=== PATIENT | female | born 1975 | race Caucasian/White ===

== ENCOUNTER 2019-03-03 17:01 | Inpatient (IN) ==
--- NOTE | 2019-03-03 17:59 | Emergency Department Note ---
ED Disposition Clinical Impression: Incarcerated ventral hernia, Small bowel obstruction Disposition: Still a Patient Condition on Discharge: Fair Instructions: DI for Acute Abdomen Referrals: Kylah Baldwin APRN [Primary Care Provider] - Time of Disposition: 19:44 - Critical Care Critical Care Time: No Attestation: On 03/03/19, the high probability of a clinically significant, sudden or life threatening deterioration of the following system(s) required my full and direct attention, intervention and personal management. The time I documented below is in addition to time spent performing reported procedures but includes the following listed in this critical care notation. Medical Decision Making - Medical Records Medical records reviewed: Yes: I reviewed the patient's medical records. - Eben Inquiry Pt receiving controlled substance: No Eben was queried for this patient: No Vital Signs: 03/03/19 17:12 03/03/19 18:32 03/03/19 19:39 Temperature 98.0 F 98.3 F Temperature Source Oral Oral Pulse Rate [Right Radial] 87 79 85 Respiratory Rate 18 18 16 Blood Pressure [Right Arm] 183/127 H 181/112 H 151/110 H Blood Pressure Mean [Right Arm] 145 135 123 Blood Pressure Source [Right Arm] Automatic Cuff Automatic Cuff Automatic Cuff Blood Pressure Position [Right Arm] Sitting Sitting Standing 02 Sat by Pulse Oximetry 99 95 97 Oxygen Delivery Method Room Air Room Air Room Air - Lab Data Lab results reviewed: Yes: I reviewed the patient's lab results. Lab Results 03/03/19 17:50: WBC 13.6 H, RBC 4.85, Hgb 14.9, Hct 44.3, MCV 91.2, MCH 30.7, MCHC 33.7, RDW 13.0, Plt Count 292, MPV 9.0, Neut % (Auto) 87.1 H, Lymph % (Auto) 7.8 L, [place] % (Auto) 3.6, Eos % (Auto) 1.1, Baso % (Auto) 0.5, Neut # (Auto) 11.9 H, Lymph # (Auto) 1.1, [place] # (Auto) 0.5, Eos # (Auto) 0.2, Baso # (Auto) 0.1, Total Counted 100, Neutrophils % (Manual) 75, Lymphocytes % (Manual) 16, Atypical Lymphs % 2.0, Monocytes % (Manual) 7, Platelet Estimate Normal, RBC Morphology Normal 03/03/19 17:50: Sodium 140, Potassium 3.9, Chloride 104, Carbon Dioxide 22, Anion Gap 17.9 H, BUN 18, Creatinine 0.72, Estimated Creat Clear 90, Estimated GFR 88, Est GFR ( Amer) 106, Glucose 141 H, Calcium 9.6, Total Bilirubin 0.6, AST 15, ALT 21, Alkaline Phosphatase 128 H, Total Protein 8.0, Albumin 4.0, Globulin 4.0 H, Albumin/Globulin Ratio 1.0 L Result diagrams: 03/03/19 17:50 03/03/19 17:50 Orders (Tests/Meds): ED MEDICATIONS Generic Name Dose Route Start Last Admin Trade Name Freq PRN Reason Stop Dose Admin Sodium Chloride 1,000 mls @ 999 mls/hr 03/03/19 18:00 03/03/19 17:53 Sod Chlor 0.9% 1000ml Bag IV 03/03/19 19:00 999 mls/hr .Q1H1M ROHINI Administration Discontinued Medications Generic Name Dose Route Start Last Admin Trade Name Freq PRN Reason Stop Dose Admin Hydromorphone HCl 2 mg 03/03/19 19:09 03/03/19 19:12 Dilaudid 2mg/Ml Syringe IV 03/03/19 19:10 Not Given ONCE ONE Hydromorphone HCl 2 mg 03/03/19 19:09 03/03/19 19:19 Dilaudid 2mg/Ml Syringe IV 03/03/19 19:10 2 mg ONCE ONE Administration Lorazepam 1 mg 03/03/19 19:09 03/03/19 19:20 Ativan 2mg/Ml Vial IV 03/03/19 19:10 1 mg ONCE ONE Administration Ondansetron HCl 4 mg 03/03/19 17:52 03/03/19 17:53 Zofran 4mg/2ml Vial IV 03/03/19 17:53 4 mg ONCE ONE Administration ORDERS Category Date Time Status CT abdomen pelvis wo con Stat Cat Scan 03/03/19 17:19 Taken - Physician Consults Physician Consulted: allran Time: 19:43 Reason -: Pt condition Comment/Response: will see in ED Abdominal Pain HPI - General Chief Complaint: Abdominal Pain Stated Complaint: Pt has hernia, having pain and vomiting Time Seen by Provider: 03/03/19 17:56 Mode of Arrival: Ambulatory Limitations: No Limitations Description of Symptoms (Recalled from ER Triage Doc. by RN): Pt c/o abd pain and vomitting. Pt reports has known umbilical hernia since 2006. Pt reports in previous episodes of pain pt states she "lays down flat and reduces" hernia. Pt reports unable to do that today, reports pain has made her vomit, reports emesis is green in color - History of Present Illness HPI narrative: long standing umbilical hernia. Today pain and bilious vomiting - Related Data Allergies Allergy/AdvReac Type Severity Reaction Status Date / Time PCN (penicillin) Allergy Unknown Uncoded 09/27/17 14:26 Penicillin Allergy Unknown Uncoded 09/27/17 14:26 Penicillin G Allergy Unknown Uncoded 09/27/17 14:26 [facility] History - Hepatitis A Screen Drug use history?: No High risk sexual behaviors?: No History of sexually transmitted infection?: No Currently employed?: No Childcare worker?: No Do you have indoor plumbing?: Yes Do you have electricity?: Yes Attestation statement:: This patient has been screened for Hepatitis A risk factors. I have reviewed the patient's past medical history: Yes Medical History: Denies:: Diabetes Mellitus Type 1, Diabetes Mellitus Type 2 - Social History Alcohol Intake: never Occupational Status: employed - Psychiatric History Expresses thoughts of harming self/others: None Suicide Plan Description: No Plan ROS Obtained: Yes All systems reviewed & no additional complaints - Constitutional Constitutional: Denies fever(s) - ENT Ears, Nose, Mouth, and Throat: Denies sinus pain, Denies sinus pressure, Denies sore throat - Cardiovascular Cardiovascular: Denies chest pain, Denies dyspnea - Respiratory Respiratory: No chest congestion, No cough, No dyspnea - Gastrointestinal Gastrointestingal: Reports: abdominal pain, cramping. Denies: vomiting - Musculoskeletal Musculoskeletal: Denies joint stiffness, Denies joint swelling, Denies muscle weakness - Integumentary/Breasts Skin/Breast: Denies rash, Denies skin pain - Neurologic Neurologic: Denies numbness, Denies tingling/numbness/burning sensations - Hematologic/Lymphatic Henatologic/Lymphatic: Denies easy bleeding Physical Exam - General General appearance: alert - Head Head exam: atraumatic, normocephalic, normal inspection - Eye Eye exam: Present: normal appearance, PERRL, EOMI - ENT ENT exam: Present: normal exam, normal oropharynx, mucous membranes moist, TM's normal bilaterally, normal external ear exam - Neck Neck exam: Present: normal inspection - Chest Chest inspection: Present: normal inspection, symmetric chest wall rise. Absent: tenderness - Respiratory Respiratory exam: Present: normal lung sounds bilaterally - Cardiovascular Cardiovascular exam: Present: regular rate, normal rhythm. Absent: JVD - Abdominal Exam Abdominal exam: Present: soft, distention, tenderness, hernia, other (irreducible) - Extremities Exam Extremities exam: Present: normal inspection, full ROM, normal capillary refill. Absent: calf tenderness - Back Exam Back exam: Present: normal inspection. Absent: tenderness - Neurological Exam Neurological exam: Present: alert, oriented X3 - Psychiatric Psychiatric exam: Present: normal affect, normal mood - Skin Skin exam: Present: warm, dry, intact, normal color
[2019-03-03 18:07] LABS: Basophils # 0.1 K/mm3 (0-0.2); Basophils % 0.5 % (0.1-2.0); Eosinophils # 0.2 K/mm3 (0.0-0.4); Eosinophils % 1.1 % (0.1-12.0); Hematocrit 44.3 % (37.0-47.0); Hemoglobin 14.9 g/dL (12.2-16.2); Lymphocytes # 1.1 K/mm3 (0.7-4.5); Lymphocytes % 7.8 % (10-50); Mean Corpuscular HGB Conc 33.7 g/dL (31.8-35.4); Mean Corpuscular Hemoglobin 30.7 pg (27.0-31.2); Mean Corpuscular Volume 91.2 fl (81-99); Monocytes # 0.5 K/mm3 (0.1-1.0); Monocytes % 3.6 % (1.7-9.3); Neutrophils # 11.9 K/mm3 (1.8-7.8); Neutrophils % 87.1 % (37.0-80.0); Platelet Count 292 K/mm3 (142-424); Red Blood Count 4.85 M/mm3 (4.20-5.40); White Blood Count 13.6 K/mm3 (4.8-10.8)
[2019-03-03 18:15] LABS: Anion Gap 17.9 mEq/L (5-15); Bilirubin,Total 0.6 mg/dL (0.2-1.0); Calcium 9.6 mg/dL (8.5-10.1)
[2019-03-03 18:16] LABS: Potassium 3.9 mmoL/L (3.5-5.1)
[2019-03-03 18:28] LABS: Lymphocytes % 16 % (10-50); Monocytes % 7 % (2-9); Neutrophils % 75 % (42-76); RBC Morphology Normal; Total Cells Counted 100
--- NOTE | 2019-03-03 20:36 | History & Physical Report ---
HPI HPI: Abdominal pain and vomiting Patient is a 43-year-old white female who lives in [facility]. She has a known history of a umbilical hernia noted in 2006 during . She states that occasionally it will protrude and she is able to perform some maneuvers, particularly lying flat, and reduce it. However, this morning she states that it protruded and she was unable to reduce it. She reportedly did work today. She had persistent abdominal pain at the location and tried to eat but developed some vomiting. She has had persistent pain, discomfort, and vomiting and therefore presented to the emergency department at [facility]. She was seen and evaluated and underwent CT scan which revealed a ventral hernia containing a loop of bowel with resultant bowel obstruction. Surgical consultation was obtained. [facility] History Medical History: Reports:: Hypertension Denies:: Diabetes Mellitus Type 1, Diabetes Mellitus Type 2 *Have you ever received a pneumonia vaccine?: No *Have you received a flu vaccine this season?: Yes - *Social History Smoking Status: Current every day smoker Tobacco Type: cigarettes # Packs/Day (cigarettes): 1 Alcohol Intake: current Alcohol Intake Frequency:: holidays/special occasions only Substance Use Type: denies use *Occupational Status:: employed *Travel in the last 8 weeks: None - Psychiatric History Expresses thoughts of harming self/others: None Suicide Plan Description: No Plan Family Hx:: No significant family history Review of Systems - Review of Systems Review of systems:: pertinent systems reviewed and negative unless documented below - Constitutional Denies chills - Eyes Denies change in vision - ENT Denies abnormal hearing - *Cardiovascular Denies chest pain - *Respiratory Denies cough - *Gastrointestinal Reports abdominal pain, Reports vomiting - *Musculoskeletal Reports joint pain - Integumentary/Breasts Denies change in skin color - *Neurologic Denies dizziness, Denies numbness, Denies tingling/numbness/burning sensations Meds Allergies Allergy/AdvReac Type Severity Reaction Status Date / Time PCN (penicillin) Allergy Unknown Uncoded 09/27/17 14:26 Penicillin Allergy Unknown Uncoded 09/27/17 14:26 Penicillin G Allergy Unknown Uncoded 09/27/17 14:26 Exam Vital signs and Labs for Last 24 Hours: Temp Pulse Resp BP Pulse Ox 98.3 F 85 16 151/110 H 97 03/03/19 19:39 03/03/19 19:39 03/03/19 19:39 03/03/19 19:39 03/03/19 19:39 Laboratory Results - last 24 hr 03/03/19 17:50: WBC 13.6 H, RBC 4.85, Hgb 14.9, Hct 44.3, MCV 91.2, MCH 30.7, MCHC 33.7, RDW 13.0, Plt Count 292, MPV 9.0, Neut % (Auto) 87.1 H, Lymph % (Auto) 7.8 L, [place] % (Auto) 3.6, Eos % (Auto) 1.1, Baso % (Auto) 0.5, Neut # (Auto) 11.9 H, Lymph # (Auto) 1.1, [place] # (Auto) 0.5, Eos # (Auto) 0.2, Baso # (Auto) 0.1, Total Counted 100, Neutrophils % (Manual) 75, Lymphocytes % (Manual) 16, Atypical Lymphs % 2.0, Monocytes % (Manual) 7, Platelet Estimate Normal, RBC Morphology Normal 03/03/19 17:50: Sodium 140, Potassium 3.9, Chloride 104, Carbon Dioxide 22, Anion Gap 17.9 H, BUN 18, Creatinine 0.72, Estimated Creat Clear 90, Estimated GFR 88, Est GFR ( Amer) 106, Glucose 141 H, Calcium 9.6, Total Bilirubin 0.6, AST 15, ALT 21, Alkaline Phosphatase 128 H, Total Protein 8.0, Albumin 4.0, Globulin 4.0 H, Albumin/Globulin Ratio 1.0 L I & O for Last 24 hours: Intake & Output 03/01/19 03/02/19 03/03/19 03/04/19 11:59 11:59 11:59 11:59 Weight 250 lb - *Routine HEENT Exam Head: Present: normocephalic Eye: Present: EOMI, PERRL ENT: Present: mucous membranes moist - *Routine Neck Exam Present: supple. Absent: lymphadenopathy - *Routine Respiratory Exam Present: CTA bilaterally - *Routine Cardiovascular Exam Present: RRR - *Routine Abdominal Exam Present: soft, normoactive bowel sounds, tenderness Comments: She has palpable subcutaneous mass consistent with incarcerated hernia immediately above her umbilicus. I am unable to reduce this. - *Routine Extremities Exam Absent: cyanosis, clubbing, edema - *Routine Skin Exam Present: warm. Absent: rash - *Routine Neurological Exam Present: alert, oriented X3 - Detailed Eye Exam Eyelids: Left normal inspection Results - Results Lab Results Last 24 Hours:: Laboratory Results - last 24 hr 03/03/19 17:50: WBC 13.6 H, RBC 4.85, Hgb 14.9, Hct 44.3, MCV 91.2, MCH 30.7, MCHC 33.7, RDW 13.0, Plt Count 292, MPV 9.0, Neut % (Auto) 87.1 H, Lymph % (Auto) 7.8 L, [place] % (Auto) 3.6, Eos % (Auto) 1.1, Baso % (Auto) 0.5, Neut # (Auto) 11.9 H, Lymph # (Auto) 1.1, [place] # (Auto) 0.5, Eos # (Auto) 0.2, Baso # (Auto) 0.1, Total Counted 100, Neutrophils % (Manual) 75, Lymphocytes % (Manual) 16, Atypical Lymphs % 2.0, Monocytes % (Manual) 7, Platelet Estimate Normal, RBC Morphology Normal 03/03/19 17:50: Sodium 140, Potassium 3.9, Chloride 104, Carbon Dioxide 22, Anion Gap 17.9 H, BUN 18, Creatinine 0.72, Estimated Creat Clear 90, Estimated GFR 88, Est GFR ( Amer) 106, Glucose 141 H, Calcium 9.6, Total Bilirubin 0.6, AST 15, ALT 21, Alkaline Phosphatase 128 H, Total Protein 8.0, Albumin 4.0, Globulin 4.0 H, Albumin/Globulin Ratio 1.0 L Assessment and Plan - Assessment and plan all Dx Assessment and Plan for all problems:: I was unable to reduce the hernia in the emergency department. Patient has evidence of incarcerated supraumbilical hernia containing loop of bowel with resultant small bowel obstruction. Plan will be for emergent release of hernia and bowel obstruction with repair. She may have a strangulated hernia and require bowel resection. I explained all of this to the patient. She un derstands and agrees to proceed.
--- NOTE | 2019-03-03 22:44 | Operative Note ---
Date of procedure: 03/03/19 Pre-op Diagnosis:: Incarcerated ventral/umbilical hernia Post-op Diagnosis:: Same Procedure performed:: Open repair of incarcerated ventral hernia (primary repair) with release of bowel obstruction Surgeon:: Yuniel Del Real MD DIRECTOR OF TRAUMA:: Brian Paz Anesthesia: GETA Estimated blood loss (mL): 25 Clinical Note:: Patient is a 43-year-old white female who lives in [facility]. She has a known history of a umbilical hernia noted in 2006 during . She states that occasionally it will protrude and she is able to perform some maneuvers, particularly lying flat, and reduce it. However, this morning she states that it protruded and she was unable to reduce it. She reportedly did work today. She had persistent abdominal pain at the location and tried to eat but developed some vomiting. She has had persistent pain, discomfort, and vomiting and therefore presented to the emergency department at [facility]. She was seen and evaluated and underwent CT scan which revealed a ventral hernia containing a loop of bowel with resultant bowel obstruction. Surgical consultation was obtained. Patient was seen and examined. The hernia was unable to be reduced. She had evidence of bowel obstruction secondary to incarcerated hernia. Plan was made for emergent surgical intervention. Operative findings:: She had a rather small hernia defect with a significant amount of herniated omentum a small pedicle of which was strangulated. The loop of small bowel was ultimately identified and found to be somewhat inflamed but viable with no evidence of any necrosis. The umbilical sub-dermis was densely adherent to the chronically incarcerated hernia sac which ultimately required excision of the skin of the umbilicus for repair. Operative note:: Consent was obtained patient was taken emergently to the operating room. She was positioned in a supine position. General anesthesia was induced via endotracheal tube. Pardo catheter was placed. Her abdomen was prepped and draped in the standard surgical fashion. Limited midline incision was made in the periumbilical location. Dissection was carried down through subcutaneous tissues. Firm hernia contents were identified and dissection was carried out dissecting the hernia sac free from the surrounding subcutaneous tissues. Hernia sac with contained contents was rather large. The umbilical skin and subdermis was densely adherent to the hernia sac. This was unable to be dissected free from the hernia sac and therefore decision was made to excise the involved skin. Involved skin was excised. Ultimately the hernia sac was opened. There was contained omentum incarcerated in a small pedicle of omentum was strangulated. The pedicle of omentum was sequentially clamped divided and ligated with Vicryl ties. This was ultimately sent as the specimen labeled hernia sac and contents. The peritoneum of the hernia sac was dissected down to the fascia and the extraneous peritoneum of the hernia sac was excised using electrocautery. This was included in the specimen. The defect was relatively small measuring about 2-1/2 to 3 cm. The involved loop of small bowel was then able to be identified which was initially not noted in the hernia sac. The loop of small bowel was somewhat inflamed but viable and nonnecrotic. It was returned to the peritoneal cavity. The fascial defect of the hernia was closed with interrupted #1 Prolene sutures in a "farnearnearfar" fashion. This resulted in good primary closure of the hernia defect. The subcutaneous tissues were irrigated. There was good hemostasis. The skin was closed with a combination of skin dick and interrupted 2-0 nylon vertical mattress sutures. Clean dry sterile absorbent dressing was applied. Condition: stable Disposition: PACU Specimens:: Hernia sac and contents Complications:: None immediately apparent
--- NOTE | 2019-03-03 22:53 | Progress Note ---
[facility] Anesthesia Checklist - Patient Identification Patient Identification: Arm Band, Verbal (Name & ) - Structural Data Admitted From: Emergency Dept Planned Operative Procedure/s: Open ventral hernia repair Consent for Planned Operative Procedure(s) Verified: Yes Verified Documents: Surgical Consent, History and Physical - NPO Status Verified Time NPO: 06:00 - Chart Verification Results Verified: CBC, BMP - Additional verifications Patient : No Anesthesia Reactions: No - Airway Assessment C-Spine Mobility Assessed: Yes TMJ Mobility Assessed: Yes Dentition: Poor Dentition (broken, chipped) - Neurological Assessment Level of Consciousness: Awake, Alert, Appropriate, Follows Commands Hx Seizures: No Numbness or tingling in extremities: No - Anesthesia Plan Anesthesia Risk discussed: Yes Anesthesia Plan: Verified ASA Class: III (E) Anesthesia Type: General [facility] History I have reviewed the patient's past medical history: Yes Medical History: Reports:: Hypertension (noncomplaint) Denies:: Diabetes Mellitus Type 1, Diabetes Mellitus Type 2 *Have you ever received a pneumonia vaccine?: No *Have you received a flu vaccine this season?: Yes Comment:: Morbid obesity Other Surgeries: Yes: (x2) - *Social History Smoking Status: Current every day smoker Tobacco Type: cigarettes # Packs/Day (cigarettes): 2 Alcohol Intake: current Alcohol Intake Frequency:: holidays/special occasions only Substance Use Type: denies use *Occupational Status:: employed *Travel in the last 8 weeks: None - Psychiatric History Expresses thoughts of harming self/others: None Suicide Plan Description: No Plan Family Hx:: No significant family history
--- NOTE | 2019-03-03 22:53 | Progress Note ---
[facility] Anesthesia Record Part I Intake, IV Amount: 900 Estimated blood loss (mL): 20 Urine output (mL): 150 Blood Products used (#): none Blood Pressure: 108/32 SaO2: 95 Pulse Rate: 100 Respiratory Rate: 10 Temperature: 98.4 F Patient is:: Awake, Nasal O2, Stable Stable to PACU at:: 22:45
--- NOTE | 2019-03-03 22:54 | Progress Note ---
[facility] Anesthesia Record Part II Discharge Time: 23:15 Destination: Medical Surgical Department PACU nurse assessment reviewed?: Yes Patient Condition:: Good Anesthesia Complications:: None Swallowing reflex intact?: Yes Cyanosis?: No
[2019-03-04 05:19] LABS: Basophils % 0.1 % (0.1-2.0); Eosinophils # 0.1 K/mm3 (0.0-0.4); Eosinophils % 0.8 % (0.1-12.0); Hematocrit 40.6 % (37.0-47.0); Lymphocytes # 0.8 K/mm3 (0.7-4.5); Lymphocytes % 6.2 % (10-50); Mean Corpuscular HGB Conc 32.6 g/dL (31.8-35.4); Mean Corpuscular Hemoglobin 31.3 pg (27.0-31.2); Mean Corpuscular Volume 96.2 fl (81-99); Mean Platelet Volume 9.3 fl (7.4-10.4); Monocytes # 0.4 K/mm3 (0.1-1.0); Monocytes % 3.3 % (1.7-9.3); Neutrophils # 11.3 K/mm3 (1.8-7.8); Neutrophils % 89.5 % (37.0-80.0); Platelet Count 226 K/mm3 (142-424); Red Blood Count 4.22 M/mm3 (4.20-5.40); Red Cell Distribution Width 12.8 % (11.5-17.5); White Blood Count 12.6 K/mm3 (4.8-10.8)
[2019-03-04 05:24] LABS: Hemoglobin 13.2 g/dL (12.2-16.2)
[2019-03-04 05:26] LABS: Calcium 8.6 mg/dL (8.5-10.1)
[2019-03-04 05:52] LABS: Lymphocytes % 5 % (10-50); Monocytes % 1 % (2-9); Neutrophils % 91 % (42-76); RBC Morphology Normal; Total Cells Counted 100
--- NOTE | 2019-03-04 08:56 | Progress Note ---
Subjective Patient reports: feels better Narrative: No complaints of nausea. Thirsty. Pain actually improved. Exam Vital signs and Labs for Last 24 Hours: Temp Pulse Resp BP Pulse Ox 98.2 F 81 18 143/87 H 98 03/04/19 08:00 03/04/19 08:00 03/04/19 08:00 03/04/19 08:00 03/04/19 08:00 Laboratory Results - last 24 hr 03/03/19 17:50: WBC 13.6 H, RBC 4.85, Hgb 14.9, Hct 44.3, MCV 91.2, MCH 30.7, MCHC 33.7, RDW 13.0, Plt Count 292, MPV 9.0, Neut % (Auto) 87.1 H, Lymph % (Auto) 7.8 L, [place] % (Auto) 3.6, Eos % (Auto) 1.1, Baso % (Auto) 0.5, Neut # (Auto) 11.9 H, Lymph # (Auto) 1.1, [place] # (Auto) 0.5, Eos # (Auto) 0.2, Baso # (Auto) 0.1, Total Counted 100, Neutrophils % (Manual) 75, Lymphocytes % (Manual) 16, Atypical Lymphs % 2.0, Monocytes % (Manual) 7, Platelet Estimate Normal, RBC Morphology Normal 03/03/19 17:50: Sodium 140, Potassium 3.9, Chloride 104, Carbon Dioxide 22, Anion Gap 17.9 H, BUN 18, Creatinine 0.72, Estimated Creat Clear 90, Estimated GFR 88, Est GFR ( Amer) 106, Glucose 141 H, Calcium 9.6, Total Bilirubin 0.6, AST 15, ALT 21, Alkaline Phosphatase 128 H, Total Protein 8.0, Albumin 4.0, Globulin 4.0 H, Albumin/Globulin Ratio 1.0 L 03/03/19 21:20: Urine Color Yellow, Urine Appearance Cloudy, Urine pH 6.0, Ur Specific [place] >= 1.030, Urine Protein 1+, Urine Glucose (UA) Negative, Urine Ketones Negative, Urine Blood 3+, Urine Nitrate Negative, Urine Bilirubin Neg ative, Urine Urobilinogen 0.2, Ur Leukocyte Esterase Negative, Urine RBC 10-20 03/04/19 04:50: WBC 12.6 H, RBC 4.22, Hgb 13.2 D, Hct 40.6, MCV 96.2, MCH 31.3 H, MCHC 32.6, RDW 12.8, Plt Count 226, MPV 9.3, Neut % (Auto) 89.5 H, Lymph % (Auto) 6.2 L, [place] % (Auto) 3.3, Eos % (Auto) 0.8, Baso % (Auto) 0.1, Neut # (Auto) 11.3 H, Lymph # (Auto) 0.8, [place] # (Auto) 0.4, Eos # (Auto) 0.1, Baso # (Auto) 0.0, Total Counted 100, Neutrophils % (Manual) 91 H, Band Neutrophils % 3.0, Lymphocytes % (Manual) 5 L, Monocytes % (Manual) 1 L, Platelet Estimate Normal, RBC Morphology Normal 03/04/19 04:50: Sodium 140, Potassium 4.0, Chloride 107, Carbon Dioxide 23, Anion Gap 14.0, BUN 14, Creatinine 0.61, Estimated Creat Clear 106, Estimated GFR 107, Est GFR ( Amer) 129 D, Glucose 124 H, Calcium 8.6 D I & O for Last 24 hours: Intake & Output 03/01/19 03/02/19 03/03/19 03/04/19 11:59 11:59 11:59 11:59 Intake Total 1888 / 1888 Output Total 400 / 400 Balance 1488 / 1488 Weight 259 lb 4 oz - *Routine Abdominal Exam Present: soft Comments: Incision clean with some serous drainage. Progress Note: A&P Assessment and Plan for All Diagnoses:: LIANA Pardo Clear liquids Start Metoprolol
--- NOTE | 2019-03-04 10:56 | Pharmacy Consult Notes ---
[facility] Pharmacy VTE Monitoring - Patient Demographics Admission date: 03/04/19 Report Date: 03/04/19 Time: 10:55 Allergies/Adverse Reactions: Patient Allergies Penicillins Allergy (Unknown, Verified 03/04/19 08:09) Unknown allergy reaction Height: 1.65 m Weight: 117.594 kg Patient Problems: Current Active Problems (Updated 03/03/19 @ 19:44 by Lance Carias MD) Incarcerated ventral hernia (Acute) Small bowel obstruction (Acute) - VTE Risk Labs: VTE Related Lab Results Hgb 13.2 g/dL (12.2-16.2) D 03/04/19 04:50 Hct 40.6 % (37.0-47.0) 03/04/19 04:50 Plt Count 226 K/mm3 (142-424) 03/04/19 04:50 BUN 14 mg/dL (7-18) 03/04/19 04:50 Creatinine 0.61 mg/dL (0.55-1.02) 03/04/19 04:50 Estimated Creat Clear 106 mL/min (50-200) 03/04/19 04:50 VTE Score: 4 VTE Risk Level: Low Risk - Prophylaxis Types of VTE Prophylaxis: IPCS Knee High (SCUDS ORDERED) Location of Applied Device: Bilateral Lower Extremeties
[2019-03-05 06:59] LABS: Basophils % 0.5 % (0.1-2.0); Eosinophils # 0.2 K/mm3 (0.0-0.4); Eosinophils % 2.6 % (0.1-12.0); Hematocrit 34.5 % (37.0-47.0); Hemoglobin 11.5 g/dL (12.2-16.2); Lymphocytes # 2.1 K/mm3 (0.7-4.5); Lymphocytes % 32.3 % (10-50); Mean Corpuscular HGB Conc 33.4 g/dL (31.8-35.4); Mean Platelet Volume 8.8 fl (7.4-10.4); Monocytes # 0.4 K/mm3 (0.1-1.0); Monocytes % 6.2 % (1.7-9.3); Neutrophils # 3.7 K/mm3 (1.8-7.8); Neutrophils % 58.4 % (37.0-80.0); Platelet Count 192 K/mm3 (142-424); Red Blood Count 3.71 M/mm3 (4.20-5.40); Red Cell Distribution Width 13.1 % (11.5-17.5); White Blood Count 6.4 K/mm3 (4.8-10.8)
[2019-03-05 07:06] LABS: Anion Gap 10.5 mEq/L (5-15); Calcium 8.4 mg/dL (8.5-10.1); Potassium 3.5 mmoL/L (3.5-5.1)
--- NOTE | 2019-03-05 09:41 | Progress Note ---
Subjective Patient reports: feels better Narrative: Patient tolerated clear liquids without any difficulty whatsoever. She was requesting a [employer] chicken sandwich. She was advanced to full liquids. She has tolerated this well. Exam Vital signs and Labs for Last 24 Hours: Temp Pulse Resp BP Pulse Ox 98.1 F 70 18 151/81 H 97 03/05/19 07:58 03/05/19 07:58 03/05/19 07:58 03/05/19 07:58 03/05/19 07:58 Laboratory Results - last 24 hr 03/05/19 05:49: Sodium 142, Potassium 3.5, Chloride 108 H, Carbon Dioxide 27, Anion Gap 10.5, BUN 9 D, Creatinine 0.70, Estimated Creat Clear 92, Estimated GFR 91, Est GFR ( Amer) 110, Glucose 87, Calcium 8.4 L 03/05/19 05:49: Hemoglobin A1c 5.2 03/05/19 06:05: WBC 6.4 D, RBC 3.71 L, Hgb 11.5 L, Hct 34.5 L, MCV 93.0, MCH 31.0, MCHC 33.4, RDW 13.1, Plt Count 192, MPV 8.8, Neut % (Auto) 58.4, Lymph % ( Auto) 32.3, [place] % (Auto) 6.2, Eos % (Auto) 2.6, Baso % (Auto) 0.5, Neut # (Auto) 3.7, Lymph # (Auto) 2.1, [place] # (Auto) 0.4, Eos # (Auto) 0.2, Baso # (Auto) 0.0 I & O for Last 24 hours: Intake & Output 03/02/19 03/03/19 03/04/19 03/05/19 11:59 11:59 11:59 11:59 Intake Total 2600 / 2600 3175 / 3175 Output Total 1875 / 1875 Balance 725 / 725 3175 / 3175 Weight 259 lb 4 oz 271 lb 5 oz - *Routine HEENT Exam Head: Present: normocephalic Eye: Present: EOMI, PERRL ENT: Present: mucous membranes moist - *Routine Neck Exam Present: supple. Absent: lymphadenopathy - *Routine Respiratory Exam Present: CTA bilaterally - *Routine Cardiovascular Exam Present: RRR - *Routine Abdominal Exam Present: soft, normoactive bowel sounds. Absent: tenderness Comments: Incision is clean - *Routine Extremities Exam Absent: cyanosis, clubbing, edema - *Routine Skin Exam Present: warm. Absent: rash - *Routine Neurological Exam Present: alert, oriented X3 - Detailed Eye Exam Eyelids: Left normal inspection Progress Note: A&P Assessment and Plan for All Diagnoses:: Plan for discharge home.
--- NOTE | 2019-03-05 09:45 | Discharge Summary ---
General - General Admission date:: 03/03/19 Discharge date: 03/05/19 HPI HPI: Patient is a 43-year-old white female who lives in [facility]. She has a known history of a umbilical hernia noted in 2006 during . She states that occasionally it will protrude and she is able to perform some maneuvers, particularly lying flat, and reduce it. However, this morning she states that it protruded and she was unable to reduce it. She reportedly did work today. She had persistent abdominal pain at the location and tried to eat but developed some intractable vomiting. She has had persistent pain, discomfort, and vomiting and therefore presented to the emergency department at [facility]. She was seen and evaluated and underwent CT scan which revealed a ventral hernia containing a loop of bowel with resultant bowel obst ruction. Surgical consultation was obtained. Hospital Course Hospital Course: Patient was seen and examined as a consultation in the emergency department. T he hernia was unable to be reduced and was consistent with an incarcerated with possibly strangulated ventral hernia with resultant bowel obstruction. Patient was taken emergently to the operating room which time she underwent open repair. She had a significant amount of incarcerated omentum within the hernia sac and a small pedicle of incarcerated omentum. The loop of small bowel had spontaneo usly reduced during the dissection process. This was inspected and found to be somewhat irritated but non-necrotic and viable. She underwent primary repair. Please see operative dictation for complete details. She was admitted postoperatively for inpatient care and convalescence. She remained on n.p.o. status overnight. The following morning she felt much better. She was given a clear liquid diet. She tolerated this without difficulty and in the afternoon of postoperative day #1 was requesting a chicken sandwich. She was advised against this and given a full liquid diet. She tolerated full liquid diet without difficulty overnight and on postoperative day #2 arrangements were made for discharge home. Objective Vital signs: Temp Pulse Resp BP Pulse Ox 98.1 F 70 18 151/81 H 97 03/05/19 07:58 03/05/19 07:58 03/05/19 07:58 03/05/19 07:58 03/05/19 07:58 - Detailed Eye Exam Eyelids: Left normal inspection Results Labs on day of discharge: Labs from last 24 hours 03/05/19 03/05/19 03/05/19 06:05 05:49 05:49 WBC 6.4 D RBC 3.71 L Hgb 11.5 L Hct 34.5 L MCV 93.0 MCH 31.0 MCHC 33.4 RDW 13.1 Plt Count 192 MPV 8.8 Neut % (Auto) 58.4 Lymph % (Auto) 32.3 [place] % (Auto) 6.2 Eos % (Auto) 2.6 Baso % (Auto) 0.5 Neut # (Auto) 3.7 Lymph # (Auto) 2.1 [place] # (Auto) 0.4 Eos # (Auto) 0.2 Baso # (Auto) 0.0 Sodium 142 Potassium 3.5 Chloride 108 H Carbon Dioxide 27 Anion Gap 10.5 BUN 9 D Creatinine 0.70 Estimated Creat Clear 92 Estimated GFR 91 Est GFR ( Amer) 110 Glucose 87 Hemoglobin A1c 5.2 Calcium 8.4 L Discharge Plan - Patient Discharge Instructions ACTIVITY: No heavy lifting DIET: advance to your usual diet Patient Instructions: Hernia Repair, DI for Hernia Repair, DI for Acute Abdomen, Ventral Hernia, DI for Ventral Hernia - Follow up Plan Follow up with: Yuniel Del Real MD [Staff Physician] - 1 week Kylah Baldwin APRN [Primary Care Provider] - Disposition: Home, Self-Correction Medications: Home Medications Medication Instructions Recorded Confirmed Type Meloxicam 15 mg PO DAILYP PRN 03/04/19 03/04/19 History Hydrocod/Acet 5/325 mg [[place] 1 - 2 tab PO Q6HP PRN #21 tab 03/05/19 Rx 5/325mg tablet] Prescriptions/Medication Reconciliation: New Hydrocod/Acet 5/325 mg [[place] 5/325mg tablet] 1 - 2 tab PO Q6HP PRN #21 tab PRN Reason: Moderate Pain Continued Meloxicam 15 mg PO DAILYP PRN PRN Reason: Inflammation
== END 2019-03-05 12:16 | disposition home or self-care (01) | DRG 354 ==
LOC: ER 17:01 → 2ND 21:04 → SDC 21:04 → OBSVTOIN 23:25 → 2ND 03-04 19:48
PROVIDERS: ADMIT Surgery; ATTEND Surgery
CPT/HCPCS: 36415; 74176; 80048; 80053; 81001; 83036; 85007; 85025; 96365; 96366; 96367; 96375; 99284; J0131; J1956; J2405; J2710

== ENCOUNTER → 2019-04-30 06:15 | Outpatient (CLI) | payer BC, SELFPAY ==
--- NOTE | 2019-04-30 06:21 | NM_ITS ---
History:HTN, Tobacco use, Family history Procedure: Patient exercised on Morteza protocol 5 minutes and 2 seconds, resting heart rate 87 bpm, resting blood pressure 153/59, with exercise maximum heart rate achieve was 169 bpm which is over 85 % of the maximum predicted heart rate and blood pressure was 212/80. Test was stopped due to shortness of breath, patient denied any complained of chest pain. Patient has adequate exercise capacity achieved 7.0 mets of workload on treadmill, the blood pressure response to exercise was hypertensive. Electrocardiogram: Resting electrocardiogram showed sinus rhythm, with exercise there is less than 1.5mm ST segment depression noted from the baseline EKG. The EKG portion of the exercise Myoview is negative for ischemia, there are frequent premature ventricular complexes seen during the test . Cardias Stress and Resting SPECT images: Cardias Stress and Resting SPECT images were obtained using technetium 99m Myoview 32.1 mCi stress and 10.41 mCi at rest. Gated SPECT further analysis of segmental wall motion and calculation of ejection fraction also done. Cardiac stress and resting SPECT show of fixed defect anteroapically with normal contractility in the gated SPECT is likely secondary to soft tissue attenuation., the computer derived ejection fraction is 38% with no regional wall motion abnormality, however during this study frequent premature ventricular complexes present, that may underestimate the ejection fraction by gated SPECT, and echocardiogram will be better modality to evaluate left ventricular systolic function in this patient. Conclusion: 1. The EKG portion of the exercise Myoview is negative for ischemia, patient has adequate exercise capacity achieved 7mets of workload on treadmill, the blood pressure response to exercise was hypertensive. There was no exercise-induced chest discomfort. 2. No scintigraphic evidence of reversible ischemia seen, computer derived ejection fraction is 38 % with no regional wall motion abnormality, however during this study frequent premature ventricular complex is present that may underestimate the ejection fraction with gated SPECT, and echocardiogram will be better modality to evaluate left ventricular systolic function in this patient.. .
--- NOTE | 2019-04-30 07:11 | HMH.ITSHM ---
Current Home Medications as stated by this patient Ema Solis or premium representative. []MELOXICAM LISINOPRIL
== END ==
PROVIDERS: PCP Emergency Medicine; Visit Provider Internal Medicine
DX: R07.9 Chest pain, unspecified (principal); E66.9 Obesity, unspecified; I10 Essential (primary) hypertension; F17.200 Nicotine dependence, unspecified, uncomplicated; Z82.3 Family history of stroke
CPT/HCPCS: 78452; 93017; A9502

== ENCOUNTER → 2019-05-01 13:44 | Outpatient (CLI) | payer BC, SELFPAY ==
--- NOTE | 2019-05-01 13:47 | CA_ITS ---
CA echo doppler complete PROCEDURE: INDICATIONS FOR THE TEST: Chest pain X COPD Heart Murmur Tobacco SmokingX Palpitations Fatigue Syncope Edema HypertensionXDiabetes Mellitus Rheumatic Fever SOBXDOEXObesityXHyperlipidemia Family History HDX Additional History PATIENT INFORMATION HEIGHT: 65 WEIGHT:261 GENDER: Female B/P:166/83 2-D/M-MODE INTERPRETATION: 2-D MEASUREMENTS OBSERVED VALUES IN CMS Right Ventricular Dimension (RVDd) 2.8 Interventricular Septum (Thickness)(IVsd) .9 Left Ventricular Internal Dimensions(LVIDd) 5.2 Left Ventricular Posterior Wall (Thickness)(LVPWd) 1.0 Aortic Root 3.8 Aortic Cusp Separation 1.7 Left Atrial Dimensions (LAD) 4.4 2D 1. Left atrium is mildly enlarged, left ventricle is normal size, left ventricle wall thickness is upper limit of the normal, there is preserved left ventricular systolic function, visually estimated ejection fraction 50% with no regional wall motion abnormality. 2. The right atrium and right ventricle are mildly enlarged with normal contractility. 3. The aortic, mitral and tricuspid valve are grossly normal. 4. The pulmonic valve is poorly visualized. 5. No significant pericardial effusion noted. DOPPLER INTERROGATION: Doppler interrogation of the aortic, mitral and tricuspid valvular presence of mild mitral and tricuspid regurgitation, tricuspid regurgitation jet velocity is inadequate for calculation of the right ventricular systolic pressure, grade 1 diastolic dysfunction seen without tissue Doppler evidence of raised left atrial pressure. CONCLUSION: 1. Mildly enlarged left atrium, normal left ventricular size, preserved left ventricular systolic function, visually estimated ejection fraction 50% with no regional wall motion abnormality, grade 1 diastolic dysfunction seen without tissue Doppler evidence of raised left atrial pressure. 2. Mildly enlarged right ventricle with normal contractility. 3. Mild mitral and tricuspid regurgitation 4. No significant pericardial effusion noted.
== END ==
PROVIDERS: PCP Nurse Practitioner Family; Visit Provider Internal Medicine
DX: R07.9 Chest pain, unspecified (principal); I10 Essential (primary) hypertension; E66.9 Obesity, unspecified; F17.200 Nicotine dependence, unspecified, uncomplicated; Z82.3 Family history of stroke
CPT/HCPCS: 93306

== ENCOUNTER 2025-01-12 17:43 | Emergency (ER) | payer BC, SELFPAY ==
[2025-01-12 17:59] VITALS: BP 223/131; PULSE 99; RESP 22; TEMP 36.6; O2SAT 94; BMI 51.5
--- NOTE | 2025-01-12 18:09 | ECG_ITS ---
APPROVED REPORT Exam: Resting ECG HR:98 bpm ECG Measurements Heart Rate 98 AXES WY 126 P 60 QRSd 92 QRS 10 QT 361 T 46 QTc 416 Conclusion Sinus rhythm with frequent PVCs PACs Electronically signed by : JJ ARANDA, 01/12/2025 23:09:07
[2025-01-12 18:15] VITALS: BP 180/95; PULSE 98; RESP 30; O2SAT 96
--- NOTE | 2025-01-12 18:17 | XR_ITS ---
PROCEDURE INFORMATION: Exam: XR Chest Exam date and time: 01/12/2025 6:24 PM Age: 49 years old Clinical indication: Shortness of breath; Additional info: SOA TECHNIQUE: Imaging protocol: Radiologic exam of the chest. Views: 1 view. COMPARISON: [id number] CT abdomen pelvis wo con 03/03/2019 5:57 PM FINDINGS: Lungs: Unremarkable. No consolidation. Pleural spaces: Unremarkable. No pleural effusion. No pneumothorax. Heart/Mediastinum: Unremarkable. No cardiomegaly. Bones/joints: Unremarkable. IMPRESSION: No acute findings.
--- NOTE | 2025-01-12 18:19 | HMH.EDGENADL ---
Discharge Plan Disposition Patient Disposition: Home, Self-Care Condition: Good Prescriptions Prescriptions: New albuterol sulfate 90 mcg/actuation HFA aerosol inhaler 1 inh inhalation QID PRN (Reason: shortness of breath or wheezing) Qty: 8.5 0RF No Action meloxicam 15 mg tablet 15 mg PO DAILYP PRN (Reason: Inflammation) Qty: 14 0RF lisinopril 10 mg tablet See Rx Instructions .ROUTE .COMPLEX Qty: 30 0RF Dose Instruction: TAKE 1 TABLET BY MOUTH EVERY DAY Rx Instructions: TAKE 1 TABLET BY MOUTH EVERY DAY Referrals Follow up/Referrals: Provider,Referral, MD [Primary Care Provider] - See instructions Activity Restrictions/Add. Instructions Additional Instructions/Restrictions: Tylenol and ibuprofen as needed for pain or fever Humidifier/vaporizer/hot steamy shower Follow-up with primary care tomorrow. Follow-up immediately in the ER of the [facility] for new or worsening symptoms or no noticeable improvement over the next 48-72 hours. Stop smoking Inhaler every 4-6 hours as needed. Should help open airways improved cough, wheezing, shortness of breath Clinical Impressions Clinical Impression: Acute bronchitis Qualifiers: Bronchitis organism: unspecified organism Qualified Code(s): J20.9 - Acute bronchitis, unspecified Instructions Patient Instructions: DI for Acute Bronchitis Print Language Print Language: Surinamese Discharge ED Provider: Sumeet Gonzalez General Adult HPI <Nikia Dimas ([facility]), [employer] - Last Filed: 01/12/25 19:35> General Chief complaint: Shortness of Breath/Dyspnea Stated complaint: soa, cough, jael Time Seen by Provider: 01/12/25 17:57 Mode of Arrival: Ambulatory Source of Information: Patient and Spouse Description of Symptoms (Recalled from ER Triage Doc. by RN): PT C/O A COUGH THAT STARTED AT WORK ON TUESDAY. PT REPORTS IT HAS GOTTEN WORSE AND IS NOW HAVING SHORTNESS OF BREATH ESPECIALLY WHILE WALKING. History of Present Illness HPI narrative: 49-year-old female presents for complaints of cough and shortness of breath that started on Tuesday and getting worse especially with walking. Patient states she has been taking [id number] cough and cold medicine. Related Data Previous Rx's ?Medication ?Instructions ?Recorded meloxicam 15 mg tablet 15 mg PO DAILYP PRN Inflammation 07/11/19 #14 tabs lisinopril 10 mg tablet See Rx Instructions .Route 04/25/20 .COMPLEX #30 tabs albuterol sulfate 90 mcg/actuation 1 inh inhalation QID PRN shortness 01/12/25 aerosol inhaler of breath or wheezing #8.5 grams Allergies Allergy/AdvReac Type Severity Reaction Status Date / Time Penicillins Allergy Unknown Unknown Verified 05/07/19 12:12 allergy reaction PFSH <[facility] [employer]PER[employer]OR - Last Filed: 01/12/25 19:35> [facility] Disclaimer: The information contained in this section may have been updated after the patient was seen, as this information can be updated by other users. Social History , [employer]) Smoking Status: Current every day smoker tobacco type: cigarettes packs per day: 1 second hand exposure: Yes alcohol intake: never substance use type: denies use current occupational status: employed Travel in the last 8 weeks: Inside the [place] Have you lived/traveled outside [place] in past 30 days?: No Contact w/someone who lives/traveled outside [place] past 30 days?: No Exposure to someone with infectious disease in past 14 days?: No Do you have a fever (greater than 100.4 F or 38 C)?: No Have you tested positive for COVID-19: No Exposed to someone with COVID-19 in past 14 days?: No Do you have a sore throat?: No Do you have a cough?: No Do you have any weakness?: No Do you have any diarrhea?: No Are you experiencing any unusual bleeding?: No Do you have any muscle aches/pain?: No Do you have any abdominal pain?: No Are you experiencing loss of taste or smell?: No Other Medical History Have you received the Flu Vaccine for this season: No Have you received the Pneumonia Vaccine: Yes <[facility] [employer]PERVISOR - Last Filed: 01/12/25 19:35> ROS Obtained: Yes Systems reviewed as appropriate & no additional complaints except as documented Respiratory Respiratory: Reports system reviewed and no additional complaints, except as documented, Reports as per HPI, Reports shortness of breath, Reports chest congestion, Reports cough and Reports non-productive cough Physical Exam <[facility] [employer]PERVISOR - Last Filed: 01/12/25 19:35> General General appearance: alert and in no apparent distress Eye Eye exam: Present normal appearance and PERRL ENT ENT exam: Present normal exam Respiratory Respiratory exam: Present wheezes Cardiovascular Cardiovascular exam: Present regular rate and normal rhythm Neurological Exam Neurological exam: Present alert and oriented X3 Skin Skin exam: Present warm and intact Medical Decision Making <Nikia Dimas ([facility]), [employer]PERVISOR - Last Filed: 01/12/25 19:35> Medical Records Medical records reviewed: Yes I reviewed the patient's medical records. Screening: Per USPSTF and CDC recommendations, given the prevalence of disease in our region, it is our hospital?s policy to screen for HIV and viral Hepatitis for all patients aged 18 and over and those with ongoing risk factors. Eben Inquiry Pt receiving controlled substance: No Eben was queried for this patient: No Vital Signs: 01/12/25 17:59 01/12/25 18:15 01/12/25 18:31 Temperature 97.9 F Temperature Source Oral Pulse Rate 98 H 91 H Pulse Rate [Right] 99 H Respiratory Rate 22 30 H 30 H Blood Pressure 180/95 H 137/95 H Blood Pressure [Right Arm] 223/131 H Blood Pressure Mean [Right Arm] 161 Blood Pressure Source Blood Pressure Source [Right Arm] Automatic Cuff Blood Pressure Position Blood Pressure Position [Right Arm] Supine 02 Sat by Pulse Oximetry 94 L 96 96 Oxygen Delivery Method Room Air Room Air Room Air 01/12/25 19:00 01/12/25 19:15 01/12/25 19:46 Temperature 98.9 F Temperature Source Oral Pulse Rate 99 H 91 H 99 H Pulse Rate [Right] Respiratory Rate 20 20 16 Blood Pressure 142/96 H Blood Pressure [Right Arm] Blood Pressure Mean [Right Arm] Blood Pressure Source Automatic Cuff Blood Pressure Source [Right Arm] Blood Pressure Position Supine Blood Pressure Position [Right Arm] 02 Sat by Pulse Oximetry 94 L 93 L Oxygen Delivery Method Room Air Lab Data Lab results reviewed: Yes I reviewed the patient's lab results. Lab Results 01/12/25 18:06: WBC 9.8, RBC 4.70, Hgb 14.2, Hct 44.2, MCV 94.0, MCH 30.2, MCHC 32.1, RDW 13.4, Plt Count 248, MPV 12.1 H, Neut % (Auto) 76.4, Lymph % (Auto) 16.1, [place] % (Auto) 5.1, Eos % (Auto) 1.4, Baso % (Auto) 0.6, Neut # (Auto) 7.5, Lymph # (Auto) 1.6, [place] # (Auto) 0.5, Eos # (Auto) 0.1, Baso # (Auto) 0.1, Sodium 140, Potassium 4.5, Chloride 102, Carbon Dioxide 27, Anion Gap 15.5 H, BUN 27 H, Creatinine 0.80, Estimated Creat Clear 73, Estimated GFR 76, Est GFR ( Amer) 92, Glucose 126 H, Lactate 1.3, Calcium 10.1, Total Bilirubin 0.7, AST 53 H, ALT 38, Alkaline Phosphatase 160 H, Total Protein 8.3 H, Albumin 4.8, Globulin 3.5 H, Albumin/Globulin Ratio 1.4 01/12/25 18:10: SARS-CoV-2 (PCR) Not detected, Influenza A Untype (PCR) Not detected, Influenza Type B (PCR) Not detected 01/12/25 18:18: VBG pH 7.37, VBG pCO2 42.9, VBG pO2 43.1 H, VBG HCO3 24.2, VBG Total CO2 25.6, VBG O2 Saturation 79.6 H, VBG Base Excess -1.0, VBG Lactic Acid 1.7 01/12/25 18:06 01/12/25 18:06 Orders (Tests/Meds): ED MEDICATIONS Discontinued Medications Generic Name Dose Route Start Last Admin Trade Name Yesica PRN Reason Stop Dose Admin Albuterol Sulfate 2.5 mg 01/12/25 18:21 01/12/25 18:31 Albuterol 0.083% 2.5 Mg/3 Ml Neb IH 01/12/25 18:22 2.5 mg ONCE ONE Administration Dexamethasone 10 mg 01/12/25 19:33 01/12/25 19:40 Dexamethasone 4mg Tablet PO 01/12/25 19:34 10 mg ONCE ONE Administration ORDERS Category Date Time Status CXR --portable [XR chest portable] Stat Exams 01/12/25 18:17 Completed Complete Blood Count Auto Diff Stat Lab 01/12/25 18:06 Completed Comprehensive Metabolic Panel Stat Lab 01/12/25 18:06 Completed Lactic Acid Stat Lab 01/12/25 18:06 Completed Rapid PCR Covid and Flu A/B Stat Lab 01/12/25 18:10 Completed Blood Culture Stat Micro 01/12/25 19:34 Received VBG [Venous Blood Gas] Stat RT 01/12/25 18:18 Completed Medical Decision Narrative: In summary patient is a 49-year-old female who presents to the emergency department for evaluation of shortness of breath, congestion, runny nose and elevated blood pressure. Patient states she has had upper respiratory drainage and congestion and took an [id number] cold and flu medicine that caused her blood pressure to increase. Patient is hemodynamically stable upon arrival, afebrile. Nasal drainage, wheezing throughout. Differential diagnosis includes bronchitis, flu, COVID, pneumonia. Initial workup will be conducted with CBC, CMP, EKG, chest x-ray. Initial inventions include breathing treatment. Initial workup reviewed by ak labs unremarkable chest x-ray no acute process. Upon repeat evaluation wheezing had improved and patient states she feels less short of breath now. Given this patient appropriate for discharge at this time will discharge home with follow-up from PCP. chest x-ray no acute process <Sumeet Gonzalez MD - Last Filed: 01/12/25 22:30> Vital Signs: 01/12/25 17:59 01/12/25 18:15 01/12/25 18:31 Temperature 97.9 F Temperature Source Oral Pulse Rate 98 H 91 H Pulse Rate [Right] 99 H Respiratory Rate 22 30 H 30 H Blood Pressure 180/95 H 137/95 H Blood Pressure [Right Arm] 223/131 H Blood Pressure Mean [Right Arm] 161 Blood Pressure Source Blood Pressure Source [Right Arm] Automatic Cuff Blood Pressure Position Blood Pressure Position [Right Arm] Supine 02 Sat by Pulse Oximetry 94 L 96 96 Oxygen Delivery Method Room Air Room Air Room Air 01/12/25 19:00 01/12/25 19:15 01/12/25 19:46 Temperature 98.9 F Temperature Source Oral Pulse Rate 99 H 91 H 99 H Pulse Rate [Right] Respiratory Rate 20 20 16 Blood Pressure 142/96 H Blood Pressure [Right Arm] Blood Pressure Mean [Right Arm] Blood Pressure Source Automatic Cuff Blood Pressure Source [Right Arm] Blood Pressure Position Supine Blood Pressure Position [Right Arm] 02 Sat by Pulse Oximetry 94 L 93 L Oxygen Delivery Method Room Air Lab Data Lab Results 01/12/25 18:06: WBC 9.8, RBC 4.70, Hgb 14.2, Hct 44.2, MCV 94.0, MCH 30.2, MCHC 32.1, RDW 13.4, Plt Count 248, MPV 12.1 H, Neut % (Auto) 76.4, Lymph % (Auto) 16.1, [place] % (Auto) 5.1, Eos % (Auto) 1.4, Baso % (Auto) 0.6, Neut # (Auto) 7.5, Lymph # (Auto) 1.6, [place] # (Auto) 0.5, Eos # (Auto) 0.1, Baso # (Auto) 0.1, Sodium 140, Potassium 4.5, Chloride 102, Carbon Dioxide 27, Anion Gap 15.5 H, BUN 27 H, Creatinine 0.80, Estimated Creat Clear 73, Estimated GFR 76, Est GFR ( Amer) 92, Glucose 126 H, Lactate 1.3, Calcium 10.1, Total Bilirubin 0.7, AST 53 H, ALT 38, Alkaline Phosphatase 160 H, Total Protein 8.3 H, Albumin 4.8, Globulin 3.5 H, Albumin/Globulin Ratio 1.4 01/12/25 18:10: SARS-CoV-2 (PCR) Not detected, Influenza A Untype (PCR) Not detected, Influenza Type B (PCR) Not detected 01/12/25 18:18: VBG pH 7.37, VBG pCO2 42.9, VBG pO2 43.1 H, VBG HCO3 24.2, VBG Total CO2 25.6, VBG O2 Saturation 79.6 H, VBG Base Excess -1.0, VBG Lactic Acid 1.7 Orders (Tests/Meds): ED MEDICATIONS Discontinued Medications Generic Name Dose Route Start Last Admin Trade Name Freq PRN Reason Stop Dose Admin Albuterol Sulfate 2.5 mg 01/12/25 18:21 01/12/25 18:31 Albuterol 0.083% 2.5 Mg/3 Ml Neb IH 01/12/25 18:22 2.5 mg ONCE ONE Administration Dexamethasone 10 mg 01/12/25 19:33 01/12/25 19:40 Dexamethasone 4mg Tablet PO 01/12/25 19:34 10 mg ONCE ONE Administration ORDERS Category Date Time Status CXR --portable [XR chest portable] Stat Exams 01/12/25 18:17 Completed Complete Blood Count Auto Diff Stat Lab 01/12/25 18:06 Completed Comprehensive Metabolic Panel Stat Lab 01/12/25 18:06 Completed Lactic Acid Stat Lab 01/12/25 18:06 Completed Rapid PCR Covid and Flu A/B Stat Lab 01/12/25 18:10 Completed Blood Culture Stat Micro 01/12/25 19:34 Received VBG [Venous Blood Gas] Stat RT 01/12/25 18:18 Completed ECG Data Tracing #1: I reviewed this ECG and interpreted as documented below: (Sinus rhythm with frequent PVCs. At 98 bpm with [place] 126, QRS 92, QTc 416. No acute ischemic change. Intermittent PACs as well. Normal axis) Medical Decision Narrative: In summary patient is a 49-year-old female who presents to the emergency department for evaluation of shortness of breath, congestion, runny nose and elevated blood pressure. Patient states she has had upper respiratory drainage and congestion and took an [id number] cold and flu medicine that caused her blood pressure to increase. Patient is hemodynamically stable upon arrival, afebrile. Nasal drainage, wheezing throughout. Differential diagnosis includes bronchitis, flu, COVID, pneumonia. Initial workup will be conducted with CBC, CMP, EKG, chest x-ray. Initial inventions include breathing treatment. Initial workup independently interpreted by me labs unremarkable chest x-ray no acute process. Upon repeat evaluation wheezing had improved and patient states she feels less short of breath now. Given this patient appropriate for discharge at this time will discharge home with follow-up from PCP. Independent interpretation chest x-ray no acute process I was consulted by the [facility], and we discussed the complexity of the problems being addressed. I approved the treatment and management plan for this patient's care in the Emergency Department, thus performing a substantive portion of the medical decision making. Sumeet Gonzalez MD Critical Care <Nikia Dimas ([facility]), [employer]PERVISOR - Last Filed: 01/12/25 19:35> Critical Care Time Critical Care Time: No
[2025-01-12 18:24] LABS: Lactate Venous 1.7 mmol/L (0.4-2.0); VBG HCO3 24.2 mmol/L (23-30); VBG Oxygen Saturation 79.6 % (50-70); VBG PCO2 42.9 mmol/L (35-51); VBG PH 7.37 mmol/L (7.31-7.41); VBG PO2 43.1 mmol/L (28-40); VBG Total CO2 25.6 mmol/L (23-27)
--- NOTE | 2025-01-12 18:24 | PC.NURSE ---
xr at bedside
[2025-01-12 18:31] VITALS: BP 137/95; PULSE 91; RESP 30; O2SAT 96
[2025-01-12] MEDS: ALBUTEROL 0.083% 2.5 MG/3 ML NEB IH (18:31)
[2025-01-12 18:40] LABS: Coronavirus 19, PCR Not Detected (NotDetected); Influenza A, PCR Not Detected (NotDetected); Influenza B, PCR Not Detected (NotDetected)
[2025-01-12 18:41] LABS: Basophils # 0.1 K/mm3 (0-0.2); Basophils % 0.6 % (0.1-2.0); Eosinophils # 0.1 K/mm3 (0.0-0.4); Eosinophils % 1.4 % (0.1-12.0); Hematocrit 44.2 % (37.0-47.0); Hemoglobin 14.2 g/dL (12.2-16.2); Lymphocytes # 1.6 K/mm3 (0.7-4.5); Lymphocytes % 16.1 % (10-50); Mean Corpuscular HGB Conc 32.1 g/dL (31.8-35.4); Mean Corpuscular Hemoglobin 30.2 pg (27.0-31.2); Mean Platelet Volume 12.1 fl (7.4-10.4); Monocytes # 0.5 K/mm3 (0.1-1.0); Monocytes % 5.1 % (1.7-9.3); Neutrophils # 7.5 K/mm3 (1.8-7.8); Neutrophils % 76.4 % (37.0-80.0); Platelet Count 248 K/mm3 (142-424); Red Cell Distribution Width 13.4 % (11.5-17.5); White Blood Count 9.8 K/mm3 (4.8-10.8)
[2025-01-12 18:42] LABS: Albumin Level 4.8 g/dl (3.5-5.0); Chloride 102 mmol/L (98-107); Sodium 140 mmol/L (136-145)
[2025-01-12 18:43] LABS: Potassium 4.5 mmoL/L (3.5-5.1)
[2025-01-12 18:45] LABS: Alanine Aminotransferase 38 U/L (12-78); Albumin/Globulin Ratio 1.4 (1.1-1.8); Alkaline Phosphatase 160 U/L (38-126); Anion Gap 15.5 mEq/L (5-15); Aspartate Amino Transferase 53 U/L (14-36); Bilirubin,Total 0.7 mg/dl (0.2-1.3); Blood Urea Nitrogen 27 mg/dl (7-17); Carbon Dioxide 27 mmol/L (22.0-30.0); Creatinine Clearance Estimated 73 mL/min (50-200); Estimated Glomerular Filt Rate 76 ml/min (>60); GFR (African American) 92 ML/MIN (>60); Globulin 3.5 g/dL (1.3-3.2); Total Protein,Serum 8.3 g/dl (6.3-8.2)
[2025-01-12 18:46] LABS: Calcium 10.1 mg/dl (8.4-10.2); Glucose 126 mg/dl (74-100)
[2025-01-12 18:53] LABS: Lactic Acid 1.3 mmol/L (0.7-2.1)
[2025-01-12 19:00] VITALS: PULSE 99; RESP 20; O2SAT 94
[2025-01-12 19:15] VITALS: PULSE 91; RESP 20; O2SAT 93
[2025-01-12] MEDS: DEXAMETHASONE 4MG TABLET 10 MG PO (19:40)
[2025-01-12 19:46] VITALS: BP 142/96; PULSE 99; RESP 16; TEMP 37.2; O2SAT 96
== END 2025-01-12 19:48 | disposition home or self-care (01) ==
PROVIDERS: Nurse Practitioner Family; Emergency Provider Emergency Medicine
DX: J20.9 Acute bronchitis, unspecified (principal); R06.02 Shortness of breath; R05.9 Cough, unspecified; R09.81 Nasal congestion; I10 Essential (primary) hypertension; F17.210 Nicotine dependence, cigarettes, uncomplicated; Z82.3 Family history of stroke
CPT/HCPCS: 71045; 80053; 82803; 83605; 85025; 87040; 87636; 93005; 99284; J7613; J8540